=== PATIENT | male | born 1970 | race Caucasian/White ===

== ENCOUNTER → 2020-06-22 | Outpatient (CLI) | payer OTHER ==
[~2020-06-22] MED LIST: ASPIR-LOW81 MG PO; BACTROBAN OINT22 GM EXT; BENTYL 20MG TAB20 MG PO; BUSPAR 5MG TABLE5 MG PO; CATAPRES 0.1MG0.1 MG PO; COZAAR50 MG PO; DIOVAN160 MG PO; ELIQUIS 5 MG TAB5 MG PO; IMDUR ER TAB 3030 MG PO; LIPITOR TAB 2020 MG PO; LISINOPRIL10 MG PO; LOPRESSOR 25 MG25 MG PO; LOSARTAN POTASS25 MG PO; NITROGLYCERIN0.4 MG SL; PRILOSEC OTC20 MG PO; PROTONIX40 MG PO; SOTALOL80 MG PO; VITAMIN D1000 UNI1 PO; XARELTO20 MG PO
== END ==
LOC: RAD 08:48
DX: K44.9 Diaphragmatic hernia without obstruction or gangrene (principal); R93.3 Abnormal findings on diagnostic imaging of other parts of digestive tract
CPT/HCPCS: 74246

== ENCOUNTER 2020-10-08 11:05 | Emergency (ER) | payer OTHER ==
[~2020-10-08 11:05] MED LIST changes: -BACTROBAN OINT22 GM EXT
[2020-10-08] MEDS ORDERED: BACTROBAN OINT22 GM EXT (11:25)
== END 2020-10-08 11:28 | disposition home or self-care (01) ==
LOC: ER1 11:05
DX: S61.212A Laceration without foreign body of right middle finger without damage to nail, initial encounter (principal); F17.200 Nicotine dependence, unspecified, uncomplicated; Z86.73 Personal history of transient ischemic attack (TIA), and cerebral infarction without residual deficits; Z95.0 Presence of cardiac pacemaker; W26.8XXA Contact with other sharp object(s), not elsewhere classified, initial encounter
CPT/HCPCS: 99283

== ENCOUNTER → 2020-10-08 | Outpatient (CLI) | payer OTHER | LOC: EXRD 08:28 | DX: R10.9 Unspecified abdominal pain (principal) | CPT/HCPCS: 76705 ==

== ENCOUNTER 2021-07-23 08:40 | Emergency (ER) | payer OTHER ==
[~2021-07-23 08:40] MED LIST changes: +BACTROBAN OINT22 GM EXT; +BUSPIRONE HCL7.5 MG PO; +FAMOTIDINE40 MG PO; +GAS-X125 MG PO; +MAALOX PLUS 3030 ML PO; +NIFEDIPINE ER30 M1 PO; +SOTALOL120 MG PO
[2021-07-23 10:19] LABS: HEMOGLOBIN 15.5 gm/dl (14.0-17.5); RED BLOOD COUNT 4.76 M/UL (4.20-5.50); WHITE BLOOD COUNT 6.2 K/UL (4.5-11.0)
[2021-07-23 10:48] LABS: BUN/CREATININE RATIO 13 (0-10)
[2021-07-23] MEDS ORDERED: CARAFATE1 GM PO (14:05)
== END 2021-07-23 14:20 | disposition home or self-care (01) ==
LOC: ER1 08:40
PROVIDERS: Physician Assistant Medical
DX: R07.89 Other chest pain (principal); R10.13 Epigastric pain
CPT/HCPCS: 71045; 80053; 81001; 82550; 82553; 83690; 83874; 83880; 84484; 85025; 93005; 96374; 99285; C9113; Q9967

== ENCOUNTER 2021-08-27 12:11 | Emergency (ER) | payer OTHER ==
[~2021-08-27 12:11] MED LIST changes: +CARAFATE1 GM PO
[2021-08-27 12:58] LABS: HEMOGLOBIN 17.4 gm/dl (14.0-17.5); RED BLOOD COUNT 5.25 M/UL (4.20-5.50); WHITE BLOOD COUNT 6.8 K/UL (4.5-11.0)
[2021-08-27 13:24] LABS: BUN/CREATININE RATIO 16 (0-10)
[2021-08-27] MEDS ORDERED: BENTYL 10MG CAP10 MG PO (16:40)
== END 2021-08-27 17:18 | disposition home or self-care (01) ==
LOC: ER1 12:11
PROVIDERS: Physician Assistant
DX: R07.89 Other chest pain (principal); F17.210 Nicotine dependence, cigarettes, uncomplicated; Z79.01 Long term (current) use of anticoagulants
CPT/HCPCS: 71045; 80053; 82550; 82553; 83690; 83880; 84484; 85025; 93005; 99285

== ENCOUNTER → 2021-09-30 | Outpatient (CLI) | payer OTHER ==
[~2021-09-30] MED LIST changes: +BENTYL 10MG CAP10 MG PO
== END ==
LOC: NM 08:55
DX: K21.9 Gastro-esophageal reflux disease without esophagitis (principal)
CPT/HCPCS: 78264; A9541

== ENCOUNTER → 2021-10-03 | Outpatient (CLI) | payer OTHER | LOC: ECHO 08:56 → NM 09:00 → ECHO 10:30 | DX: R07.2 Precordial pain (principal) | CPT/HCPCS: ECHO; 78452; 93017; 93306; A9502; J2785 ==

== ENCOUNTER 2022-02-06 10:32 | Observation (INO) | payer OTHER ==
[~2022-02-06] VITALS: Ht 193 cm; Wt 127.9 kg
[~2022-02-06 10:32] MED LIST changes: -IMDUR ER TAB 3030 MG PO; +ISOSORBIDE MONO60 MG PO
[2022-02-06 11:49] LABS: HEMOGLOBIN 16.1 gm/dl (14.0-17.5); RED BLOOD COUNT 4.8 M/UL (4.20-5.50); WHITE BLOOD COUNT 6.3 K/UL (4.5-11.0)
[2022-02-06 12:13] LABS: BUN/CREATININE RATIO 13 (0-10)
[2022-02-06] MEDS ORDERED: LIORESAL TAB 1010 MG PO (22:18)
[2022-02-06] MEDS ORDERED: LIPITOR20 MG PO (22:19)
[2022-02-06] MEDS ORDERED: FOLIC ACID 1 MG1 MG PO (22:22)
[2022-02-07 01:24] LABS: HEMOGLOBIN 14.4 gm/dl (14.0-17.5); RED BLOOD COUNT 4.38 M/UL (4.20-5.50); WHITE BLOOD COUNT 6.5 K/UL (4.5-11.0)
[2022-02-07 01:47] LABS: BUN/CREATININE RATIO 15 (0-10)
[2022-02-07] MEDS ORDERED: PROTONIX40 MG PO (09:08)
[2022-02-07] MEDS ORDERED: VITAMIN D21250 MCG PO (09:16)
[2022-02-07] MEDS ORDERED: ISOSORBIDE MONO60 MG PO (11:01)
== END 2022-02-07 13:10 | disposition home or self-care (01) ==
LOC: ER1 10:32 → CDU 16:18 → M/S 17:09
PROVIDERS: Family Medicine; Physician Assistant Medical; ADMIT Internal Medicine
DX: R07.89 Other chest pain (principal); I25.10 Atherosclerotic heart disease of native coronary artery without angina pectoris; I10 Essential (primary) hypertension; E78.5 Hyperlipidemia, unspecified; K44.9 Diaphragmatic hernia without obstruction or gangrene; I49.5 Sick sinus syndrome; F17.290 Nicotine dependence, other tobacco product, uncomplicated; R55 Syncope and collapse; Z86.73 Personal history of transient ischemic attack (TIA), and cerebral infarction without residual deficits; Z88.8 Allergy status to other drugs, medicaments and biological substances; Z79.01 Long term (current) use of anticoagulants; Z79.82 Long term (current) use of aspirin; Z79.899 Other long term (current) drug therapy
CPT/HCPCS: 36415; 71045; 80048; 80053; 82550; 82553; 83735; 84484; 85025; 85027; 93005; 96374; 96376; 99285; C9113; G0378; J2270; J2405